=== PATIENT | male | born 1975 | race Caucasian/White ===

== ENCOUNTER 2022-12-17 07:27 | Outpatient (CLI) | payer BC | END 2022-12-17 07:28 | disposition home or self-care (01) | LOC: CSHCT 07:27 | PROVIDERS: ATTEND Neurological Surgery | DX: D48.0 Neoplasm of uncertain behavior of bone and articular cartilage (principal); Z98.890 Other specified postprocedural states; M47.816 Spondylosis without myelopathy or radiculopathy, lumbar region | CPT/HCPCS: 72131; 72148 ==